=== PATIENT | female | born 1995 | race Caucasian/White ===

== ENCOUNTER 2018-07-11 23:30 | Emergency (ER) | payer SELFPAY ==
[~2018-07-11] VITALS: Ht 170.2 cm; Wt 113.4 kg
[2018-07-11 23:32] VITALS: BP 156/96
--- NOTE | 2018-07-11 23:36 | NUR ---
PT AMBULATORY TO ER LOBBY W/ STEADY GAIT IN STABLE CONDITION.
--- NOTE | 2018-07-11 23:48 | NUR ---
PT AMBULATED TO BED 4 AT THIS TIME IN STABLE CONDITION
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
[2018-07-12] MEDS ORDERED: KETOROLAC 30 MG/ML VIAL IM ONE (00:30)
[2018-07-12 00:58] VITALS: BP 139/72
--- NOTE | 2018-07-12 00:58 | NUR ---
Patient discharged with v/s stable. Written and verbal after care instructions given and explained. Patient alert, oriented and verbalized understanding of instructions. Ambulatory with steady gait. All questions addressed prior to discharge. ID band removed. Patient advised to follow up with PMD. Rx of CIPRO OTIC, NAPROSYN given. Patient educated on indication of medication including possible reaction and side effects. Opportunity to ask questions provided and answered.
== END 2018-07-12 00:51 | disposition home or self-care (01) ==
LOC: MED 23:30
DX: H60.92 Unspecified otitis externa, left ear (principal)
CPT/HCPCS: 82948; 96372; 99283; J1885

== ENCOUNTER 2019-03-15 08:28 | Emergency (ER) | payer SELFPAY ==
[~2019-03-15] VITALS: Ht 172.7 cm; Wt 131.3 kg
[2019-03-15 08:41] VITALS: BP 159/113
--- NOTE | 2019-03-15 08:55 | NUR ---
PT AMBULATED TO BED 12.
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
[2019-03-15] MEDS ORDERED: ACETAMINOPHEN EXTRA STRENGTH 500 MG TAB PO ONE (09:30)
--- NOTE | 2019-03-15 10:06 | NUR ---
pt left to xray
--- NOTE | 2019-03-15 10:45 | NUR ---
PT RESTING IN BED. NO NEW NEEDS AT THIS TIME.
[2019-03-15 11:46] VITALS: BP 135/91
== END 2019-03-15 11:46 | disposition home or self-care (01) ==
LOC: MED 08:28
DX: M25.561 Pain in right knee (principal); M25.562 Pain in left knee; M54.9 Dorsalgia, unspecified; V49.59XA Passenger injured in collision with other motor vehicles in traffic accident, initial encounter; Y93.89 Activity, other specified; Y92.411 Interstate highway as the place of occurrence of the external cause; Y99.8 Other external cause status
CPT/HCPCS: 72100; 73562; 99283